=== PATIENT | female | born 1985 | race Caucasian/White ===

== ENCOUNTER 2016-11-30 07:58 | Emergency (ER) | payer MEDICAID ==
[~2016-11-30] VITALS: Ht 170.2 cm; Wt 104.0 kg
[~2016-11-30 07:58] MED LIST: ALBU2.5V4 IH; ANTIHISTAMINE OTC; ASPI-134 PO; AZIT250T5 PO; BENADRYL; CETI10TA20 PO; CLIN-79 PO; CYCL10TA45 PO; DOXY100C2 PO; DUONEB 0.5 MG-33 ML IH; ESOM10SU PO; LANS30CA14 PO; LEVO250T11 PO; METH4TAB27 PO; MULT-954 PO; NIAC100T3 PO; OMEP20TA PO; PRED20TA PO; TRAM-25 PO; TRM50T PO; [UNRECOGNIZED DRUG - CODE] MC; [UNRECOGNIZED DRUG - OTHER]
--- OUTSIDE RECORDS SUMMARY | 2016-11-30 08:05 | XMS REPORT | Summary of Care ---
Author Author Jarod Martin M.D. Organization Unknown Address Unknown Phone Unavailable Care Team Providers Care Hog Dropper Name Role Phone Jarod Martin M.D. Unavailable Unavailable Leydi Smith Unavailable Unavailable Unavailable Unavailable Functional Status Name Dates Details Functional status health issues are not documented Status: Name Dates Details Cognitive status health issues are not documented Status: Problems Name Dates Details Acid reflux (530.81, K21.9) Status: Active Neuropathic pain of foot (355.8, G57.90) Status: Active Numbness in feet (782.0, R20.0) Status: Active Skin lesion of left lower extremity (709.9, L98.9) Status: Active Medications Name Dates Details PriLOSEC OTC 20 MG Oral Tablet Delayed Release TAKE 1 TABLET TWICE DAILY. Refills: 0 MarioJarod delgado M.D. Start 09-Oct-2016 Active Lyrica 75 MG Oral Capsule ! cap BID X 7 days then 2 PO BID Quantity: 120 Refills: 0 Cowden MJarod Lofton Start 09-Oct-2016 Active Lidocaine 5 % External Ointment Apply to painful area four times a day as needed Quantity: 1 Refills: 2 Cowden M.D., Jarod Start 09-Oct-2016 Active 35 GM Tube Allergies and Adverse Reactions Name Dates Details morphine (Allergy) Status: Active Procedures Procedure Dates Details Procedures not documented Immunization Name Dates Details Immunizations not documented Social History Name Dates Details Unknown if ever smoked Vital Signs Date Test Result Details 09-Oct-2016 14:31 BP Systolic 116 mm[Hg] Status: Comments: Location: LUE; Position: Sitting BP Diastolic 78 mm[Hg] Status: Comments: Location: LUE; Position: Sitting Temperature 97.9 f Status: Comments: Method: Tympanic Heart Rate 106 /min Status: Comments: Location: ; Weight 227 lb Status: Physical Findings 97 Status: Comments: O2 Saturation Results Date Description Value Details 10-Oct-2016 14:17 BASIC METABOLIC PROFILE 1210 SODIUM 139 mmol/L Range: 133-144 POTASSIUM 4.3 mmol/L Range: 3.5-5.1 CHLORIDE 102 mmol/L Range: 98-110 CARBON DIOXIDE 24.3 mmol/L Range: 23.0-33.0 ANION GAP 13 mmol/L Range: 6-16 BUN 14 mg/dL Range: 7-18 CREATININE, SERUM 0.70 mg/dL Range: 0.55-1.02 EST GFR, >60 ml/min Range: >60 EST GFR, NON-AFR CONGOLESE >60 ml/min Range: >60 Comments: EST GFR is reported in ml/min per 1.73 m2 of body surface area. ----- BUN:CREATININE RATIO 20 GLUCOSE 252 mg/dL (Above high threshold) Range: 70-100 CALCIUM 9.1 mg/dL Range: 8.5-10.1 14:24 CBC w/ Auto Diff 7150 Comments: Manual differential indicated. WBC 14.4 K/uL (Above high threshold) Range: 4.5-11.0 RBC 5.59 mil/uL (Above high threshold) Range: 3.60-5.00 HGB 15.6 g/dL Range: 12.0-16.0 HCT 47.2 % Range: 36.0-48.0 MCV 84.4 fL Range: 80.0-99.0 MCH 27.9 pg Range: 27.3-32.5 MCHC 33.0 % Range: 32.0-36.0 RDW 14.3 % Range: 11.6-14.8 PLATELETS 338 K/uL Range: 150-400 MPV 8.9 fL Range: 6.0-11.0 14:44 Manual Differential 7400 SEGS 63 % Range: 37-80 BANDS 3 % Range: 0-7 LYMPH 27 % Range: 13-50 MONO 6 % Range: 0-12 EOSIN 1 % Range: 0-7 BASO 0 % Range: 0-3 SADIQ LYMPH 0 % Range: 0-0 META 0 % Range: 0-0 MYELO 0 % Range: 0-0 PRO 0 % Range: 0-0 BLAST 0 % Range: 0-0 NUC RBC 0 /100 WBC Range: 0-0 SMUDGE 0 /100 WBC PLATELET Adequate Range: Adequate Plan of Care Name Dates Details Planned Observations Planned Goals not documented Planned Encounters Appointment; Provider: Leydi Smith M.D. On 17-Oct-2016 15:15 Interventions Provided Medication ChangesLidocaine 5 % External Ointment - StartLyrica 75 MG Oral Capsule - Start Instructions Name Dates Details Instructions not documented Encounters Appointment; Jarod Martin M.D. Encounter Diagnosis: Problem not documented On 09-Dec-2015 10:30
[2016-11-30] MEDS ORDERED: BACITRACIN OINTMENT 0.9 GM PACKET TOP ONE (08:30)
[2016-11-30 11:50] VITALS: BP 137/79
== END 2016-11-30 09:06 | disposition home or self-care (01) ==
LOC: EDUNIT# 07:58 → ED 08:00
DX: T22.212A Burn of second degree of left forearm, initial encounter (principal); X10.2XXA Contact with fats and cooking oils, initial encounter; Y93.G1 Activity, food preparation and clean up; Y92.000 Kitchen of unspecified non-institutional (private) residence as the place of occurrence of the external cause
CPT/HCPCS: 99282; A9270